=== PATIENT | male | born 2005 | race Caucasian/White ===

== ENCOUNTER 2024-06-08 17:43 | Emergency (ER) | payer OTHER ==
[~2024-06-08] VITALS: Ht 177.8 cm; Wt 97.5 kg
[2024-06-08] VITALS (9 sets, daily range): BP systolic 104–119; BP diastolic 66–75
[2024-06-08] MEDS ORDERED: IBUPROFEN 600 MG/TAB PO ONE (18:15)
[2024-06-08] MEDS ORDERED: MOTRIN800 MG PO (19:34)
== END 2024-06-08 19:58 | disposition home or self-care (01) | DRG 563 ==
LOC: ED 17:43
DX: S93.402A Sprain of unspecified ligament of left ankle, initial encounter (principal); W17.89XA Other fall from one level to another, initial encounter; Y93.67 Activity, basketball; Y92.838 Other recreation area as the place of occurrence of the external cause